=== PATIENT | female | born 1935 | race Caucasian/White ===

== ENCOUNTER 2018-08-29 13:35 | Emergency (ER) | payer MEDICARE, OTHER ==
[~2018-08-29] VITALS: Ht 165.1 cm; Wt 59.9 kg
[~2018-08-29 13:35] MED LIST: CALC.25; CALCIUM NASAL SPRAY; ENAL5 PO; FURO20; HYDACE5 PO; LEVSOD88; NITR100CA PO; PHENA200 PO; ZOLP5 PO
[2018-08-29] MEDS ORDERED: ENAL10 PO (13:54)
[2018-08-29] MEDS ORDERED: LEVSOD50 PO (13:54)
[2018-08-29] MEDS ORDERED: FURO20 PO (13:54)
[2018-08-29] MEDS ORDERED: MAGOXI400 PO (13:55)
[2018-08-29] MEDS ORDERED: ERGO400 PO (13:55)
[2018-08-29] MEDS ORDERED: TUMS500 MG PO (13:55)
== END 2018-08-29 14:17 | disposition home or self-care (01) ==
LOC: ER 13:35
DX: S93.401A Sprain of unspecified ligament of right ankle, initial encounter (principal); N19 Unspecified kidney failure; Z88.2 Allergy status to sulfonamides; Z91.048 Other nonmedicinal substance allergy status; Z88.8 Allergy status to other drugs, medicaments and biological substances; Z87.891 Personal history of nicotine dependence; Z79.899 Other long term (current) drug therapy; W19.XXXA Unspecified fall, initial encounter
CPT/HCPCS: 73610; 73630; 99283-25

== ENCOUNTER → 2019-05-08 | Outpatient (CLI) | payer MEDICARE, OTHER ==
[~2019-05-08] MED LIST changes: +ENAL10 PO; +ERGO400 PO; +FURO20 PO; +LEVSOD50 PO; +MAGOXI400 PO; +TUMS500 MG PO
== END | disposition home or self-care (01) ==
LOC: LAB EV 10:40 → LAB SHORT 10:40
DX: N39.0 Urinary tract infection, site not specified (principal)
CPT/HCPCS: 87077; 87086; 87186

== ENCOUNTER → 2022-04-14 | Outpatient (CLI) | payer MEDICARE, OTHER | END | disposition home or self-care (01) | LOC: LAB SHORT 10:49 → LAB 10:49 | DX: N39.0 Urinary tract infection, site not specified (principal) | CPT/HCPCS: 87077; 87086; 87186 ==

== ENCOUNTER → 2022-06-15 | Outpatient (CLI) | payer MEDICARE, OTHER | LOC: LAB SHORT 14:35 → LAB 14:35 | DX: N39.0 Urinary tract infection, site not specified (principal) | CPT/HCPCS: 87077; 87086; 87186 ==